=== PATIENT | female | born 1975 | race Asian ===

== ENCOUNTER 2018-12-06 01:53 | Emergency (ER) | payer OTHER ==
[~2018-12-06] VITALS: Ht 162.6 cm; Wt 93.4 kg
[2018-12-06 01:53] VITALS: TEMP 98.6
[~2018-12-06 01:53] MED LIST: LISI20TA11 PO; METF500T PO
[2018-12-06 02:20] LABS: PLATELET COUNT 293 K/uL (152-353)
[2018-12-06 02:35] LABS: POTASSIUM 3.3 mmol/L (3.6-5.2); SODIUM 144 mmol/L (136-145)
[2018-12-06 02:53] LABS: PARTIAL THROMBOPLASTIN TIME 23.4 SECONDS (24.5-33.6)
[2018-12-06 07:07] VITALS: BP 134/94
== END 2018-12-06 07:09 | disposition home or self-care (01) ==
LOC: ED 01:53
PROVIDERS: Student in an Organized Health Care Education/Training Program
DX: R07.89 Other chest pain (principal); K92.0 Hematemesis; R09.89 Other specified symptoms and signs involving the circulatory and respiratory systems; F10.129 Alcohol abuse with intoxication, unspecified
CPT/HCPCS: 36415; 80053; 80307; 80320; 80329; 81000; 81025; 83690; 83735; 84484; 85027; 85610; 85730; 93005; 96360; 96365; 96375; 99284; J3490

== ENCOUNTER 2018-12-31 07:31 | Emergency (ER) | payer OTHER ==
[~2018-12-31] VITALS: Ht 162.6 cm; Wt 106.1 kg
[2018-12-31 11:22] VITALS: BP 134/86; TEMP 98
== END 2018-12-31 11:31 | disposition home or self-care (01) ==
LOC: ED 07:31
DX: S83.91XA Sprain of unspecified site of right knee, initial encounter (principal); I10 Essential (primary) hypertension; W19.XXXA Unspecified fall, initial encounter; F17.210 Nicotine dependence, cigarettes, uncomplicated
CPT/HCPCS: 96372; 99283; J1885; J2360

== ENCOUNTER 2019-06-15 14:43 | Emergency (ER) | payer OTHER ==
[~2019-06-15] VITALS: Ht 162.6 cm; Wt 89.4 kg
[2019-06-15 14:51] VITALS: BP 185/99; TEMP 101.3
[2019-06-15 16:00] LABS: PLATELET COUNT 267 K/uL (152-353)
[2019-06-15 16:11] LABS: POTASSIUM 3.6 mmol/L (3.6-5.2)
== END 2019-06-15 18:30 | disposition home or self-care (01) ==
LOC: ED 14:43
PROVIDERS: Emergency Medicine
DX: J18.1 Lobar pneumonia, unspecified organism (principal)
CPT/HCPCS: 36415; 80053; 81000; 81025; 82150; 83605; 83690; 83735; 85027; 87040; 96360; 96375; 99284; J1885

== ENCOUNTER 2021-12-10 07:23 | Emergency (ER) | payer OTHER ==
[~2021-12-10] VITALS: Ht 162.6 cm; Wt 95.7 kg
[2021-12-10 07:23] VITALS: TEMP 98.8
[2021-12-10 08:08] LABS: PLATELET COUNT 251 K/uL (152-353)
[2021-12-10 08:09] LABS: POTASSIUM 3.8 mmol/L (3.6-5.2)
[2021-12-10] MEDS ORDERED: 904272561 PO (08:41)
[2021-12-10] MEDS ORDERED: LISITAB PO (08:44)
[2021-12-10 09:15] VITALS: BP 163/103
== END 2021-12-10 09:15 | disposition home or self-care (01) ==
LOC: ED 07:30
PROVIDERS: Emergency Medicine
PROC: 0HQ4XZZ Repair Neck Skin, External Approach (ICD-10-PCS; principal; 2021-12-10)
PROC: 0HQDXZZ Repair Right Lower Arm Skin, External Approach (ICD-10-PCS; 2021-12-10)
DX: S11.81XA Laceration without foreign body of other specified part of neck, initial encounter (principal); S51.811A Laceration without foreign body of right forearm, initial encounter; I10 Essential (primary) hypertension; Z91.14 Patient's other noncompliance with medication regimen; X99.8XXA Assault by other sharp object, initial encounter; Y93.84 Activity, sleeping; Y92.092 Bedroom in other non-institutional residence as the place of occurrence of the external cause; F17.210 Nicotine dependence, cigarettes, uncomplicated
CPT/HCPCS: 36415; 80048; 84484; 85027; 90715; 93005; 99284; J0696; J7040

== ENCOUNTER 2022-02-07 23:29 | Emergency (ER) | payer OTHER ==
[~2022-02-07] VITALS: Ht 162.6 cm; Wt 96.6 kg
[~2022-02-07 23:29] MED LIST changes: +904272561 PO; +LISITAB PO
[2022-02-08 00:41] LABS: POTASSIUM 3.5 mmol/L (3.6-5.2)
[2022-02-08 00:59] LABS: PLATELET COUNT 304 K/uL (152-353)
[2022-02-08 06:51] VITALS: BP 130/88; TEMP 98.3
== END 2022-02-08 06:51 | disposition home or self-care (01) ==
LOC: ED 23:29
PROVIDERS: Emergency Medicine Emergency Medical Services
PROC: 0HQGXZZ Repair Left Hand Skin, External Approach (ICD-10-PCS; principal; 2022-02-07)
DX: S61.412A Laceration without foreign body of left hand, initial encounter (principal); X99.8XXA Assault by other sharp object, initial encounter; Y92.89 Other specified places as the place of occurrence of the external cause
CPT/HCPCS: 36415; 80048; 81000; 84484; 85027; 87077; 87086; 87088; 87185; 87186; 93005; 96360; 96365; 99284; J2001

== ENCOUNTER 2022-02-28 13:02 | Emergency (ER) | payer OTHER ==
[~2022-02-28] VITALS: Ht 162.6 cm; Wt 96.6 kg
[2022-02-28 13:10] VITALS: TEMP 98.4
[2022-02-28 14:10] VITALS: BP 158/98
== END 2022-02-28 14:46 | disposition home or self-care (01) ==
LOC: ED 13:02
DX: L03.114 Cellulitis of left upper limb (principal); Z48.02 Encounter for removal of sutures
CPT/HCPCS: 87070; 87077; 87185; 87186; 87205; 96365; 99284